=== PATIENT | male | born 1950 | race Caucasian/White ===

== ENCOUNTER → 2021-08-03 | Day surgery (SDC) | payer OTHER ==
[~2021-08-03] MED LIST: APIX5TAB5 PO
[2021-08-03 12:55] VITALS: BP 156/114
== END | disposition home or self-care (01) ==
LOC: SURG 12:45
PROVIDERS: ATTEND Anesthesiology
DX: Z76.0 Encounter for issue of repeat prescription (principal); M54.59 Other low back pain
CPT/HCPCS: 99204; G0463

== ENCOUNTER → 2021-11-15 | Day surgery (SDC) | payer OTHER ==
[~2021-11-15] MED LIST changes: +0.9 % SODIUM CHLORIDE 10 ML VIAL. ONE; +DEXAMETHASONE SOD PHOS 10 MG/ML VIAL. ONE; +IOHEXOL 300 MG/ML 50 ML VIAL. ONE; +LIDOCAINE 1% PF 30 ML VIAL. ONE
[2021-11-15 11:15] VITALS: BP 107/77
== END ==
LOC: SURG 10:14
PROVIDERS: ATTEND Anesthesiology
DX: M54.16 Radiculopathy, lumbar region (principal); G89.29 Other chronic pain; M48.061 Spinal stenosis, lumbar region without neurogenic claudication; M96.1 Postlaminectomy syndrome, not elsewhere classified; M47.816 Spondylosis without myelopathy or radiculopathy, lumbar region; I10 Essential (primary) hypertension; I48.91 Unspecified atrial fibrillation; M19.90 Unspecified osteoarthritis, unspecified site; Z98.890 Other specified postprocedural states; Z96.653 Presence of artificial knee joint, bilateral; Z79.899 Other long term (current) drug therapy; Z79.01 Long term (current) use of anticoagulants
CPT/HCPCS: 62323; A4209; A4930; J1100; Q9967